=== PATIENT | male | born 1945 | race Caucasian/White ===

== ENCOUNTER 2017-03-07 21:31 | Emergency (ER) | payer MEDICARE ==
[~2017-03-07] VITALS: Ht 175.3 cm; Wt 74.8 kg
[2017-03-07] MEDS ORDERED: COQ-10100 MG PO (21:43)
[2017-03-07] MEDS ORDERED: ASPIR 8181 MG PO (21:43)
[2017-03-07] MEDS ORDERED: PRAVACHOL80 MG PO (21:44)
[2017-03-07] MEDS ORDERED: ZETIA10 MG PO (21:44)
[2017-03-07] MEDS ORDERED: VITAMIN D2000 UNIT PO (21:44)
[2017-03-07] MEDS ORDERED: NORVASC5 MG PO (21:44)
[2017-03-07] MEDS ORDERED: CARVEDILOL12.5 MG PO (21:44)
[2017-03-07] MEDS ORDERED: POTASSIUM600 MG PO (21:44)
[2017-03-07] MEDS ORDERED: COSOPT PF EYE1 EACH INTRAOCULR (21:45)
[2017-03-07] MEDS ORDERED: TRAVATAN Z2.5 ML OPHTHALMIC (21:45)
[2017-03-07] MEDS ORDERED: XOLEGEL45 GM TOP (21:46)
[2017-03-07] MEDS ORDERED: NORCO 5-325 TA1 EACH PO (23:18)
[2017-03-07 23:24] VITALS: BP 146/84
== END 2017-03-07 23:48 | disposition home or self-care (01) ==
LOC: M.ERS 21:31
DX: S76.311A Strain of muscle, fascia and tendon of the posterior muscle group at thigh level, right thigh, initial encounter (principal); I10 Essential (primary) hypertension; W01.10XA Fall on same level from slipping, tripping and stumbling with subsequent striking against unspecified object, initial encounter; Y93.89 Activity, other specified; Y92.89 Other specified places as the place of occurrence of the external cause; Y99.8 Other external cause status